=== PATIENT | male | born 2000 | race Caucasian/White ===

== ENCOUNTER 2020-06-03 18:31 | Emergency (ER) | payer OTHER, SELFPAY ==
[~2020-06-03] VITALS: Ht 170.2 cm; Wt 75.3 kg
[2020-06-03 18:45] VITALS: BP 129/77
--- NOTE | 2020-06-03 18:48 | NUR ---
Per MARKELL RICHARDS, okay to leave patient in tent for now. MARKELL RICHARDS aware of HR ranging in high 120s-low 130s.
--- NOTE | 2020-06-03 18:52 | NUR ---
PA RICHARDS evaluating pt in tent
--- NOTE | 2020-06-03 19:08 | NUR ---
20/M c/o cough x 1 week with decreased in taste/smell and anorexia. Also reports fever 1 week ago. SOB and cough with deep inspiration. Denies COVID pos contacts. HR ranging low 120- high 130s at triage. No resp distress noted. Appears NAD. Hx- denies NKA
--- NOTE | 2020-06-03 19:09 | NUR ---
Pt swabbed for COVID, sample dropped off at lab with paperwork
--- NOTE | 2020-06-03 19:18 | NUR ---
ERMD TO TENT TO EVALUATE PT.
--- NOTE | 2020-06-04 16:56 | NUR ---
Covid results received from lab. Results = POSITIVE. MARKELL Owusu made aware. Hard copy requested from lab and placed in infection controls mailbox.
== END 2020-06-03 20:10 | disposition home or self-care (01) ==
LOC: MED 18:31
DX: U07.1 COVID-19 (principal); R03.0 Elevated blood-pressure reading, without diagnosis of hypertension
CPT/HCPCS: 71046; 99284; U0003